=== PATIENT | female | born 2000 | race Caucasian/White ===

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

== ENCOUNTER 2019-05-15 08:43 | Emergency (ER) | payer OTHER ==
[~2019-05-15] VITALS: Ht 149.9 cm; Wt 41.4 kg
[2019-05-15 08:45] VITALS: BP 107/63
[2019-05-15] MEDS ORDERED: DICYCLOMINE HCL LIQUID 20 MG, ALUMINUM HYD/MAG/SIMETHICONE 30 ML, LIDOCAINE VISCOUS 2% ... PO ONE ×3 (08:55)
--- NOTE | 2019-05-15 09:00 | NUR ---
PT C/O STERNAL CHEST PAIN, EPIGASTIRC PAIN X 4 DAYS. PT DESCRIBES CHEST PAIN "HEARTBURN". PT DENIES N/V/D, COUGH, OR SOB AT THIS TIME. PATIENT STATES PAIN OF 5/10 AT THIS TIME; VSS; PATIENT POSITIONED FOR COMFORT; HOB ELEVATED; BEDRAILS UP X1; BED DOWN. ER MD MADE AWARE OF PT STATUS.
[2019-05-15] MEDS ORDERED: ALUMINUM HYD/MAG/SIMETHICONE 30 ML UDC ONE (09:07)
[2019-05-15] MEDS ORDERED: LIDOCAINE VISCOUS 2% 20 ML UDC ONE (09:07)
[2019-05-15] MEDS ORDERED: DICYCLOMINE HCL LIQUID 10 MG/5 ML UDC ONE (09:07)
--- NOTE | 2019-05-15 09:25 | NUR ---
PT REPORTS HAVING DELAYED MENSTRUL PEROID AND WANTED TO DO URINE TEST. [facility] SHOWS NEGATIVE RESULT.
[2019-05-15 09:39] VITALS: BP 103/59
--- NOTE | 2019-05-15 09:39 | NUR ---
Patient discharged with v/s stable. Written and verbal after care instructions given and explained. Patient alert, oriented and verbalized understanding of instructions. Ambulatory with steady gait. All questions addressed prior to discharge. ID band removed. Patient advised to follow up with PMD. Rx of Prilosec given. Patient educated on indication of medication including possible reaction and side effects. Opportunity to ask questions provided and answered.
== END 2019-05-15 09:39 | disposition home or self-care (01) ==
LOC: MED 08:43
DX: K21.9 Gastro-esophageal reflux disease without esophagitis (principal)
CPT/HCPCS: 81025; 99283

== ENCOUNTER 2019-06-24 10:03 | Emergency (ER) | payer OTHER ==
[~2019-06-24] VITALS: Ht 149.9 cm; Wt 45.4 kg
[2019-06-24 10:07] VITALS: BP 124/89
[2019-06-24] MEDS ORDERED: fentaNYL 0.05 MG/ML VIAL IVP ONE (10:15)
[2019-06-24 12:20] VITALS: BP 108/70
== END 2019-06-24 12:20 | disposition home or self-care (01) ==
LOC: MED 10:03
DX: S83.095A Other dislocation of left patella, initial encounter (principal); X58.XXXA Exposure to other specified factors, initial encounter; K21.9 Gastro-esophageal reflux disease without esophagitis; Y93.89 Activity, other specified; Y92.092 Bedroom in other non-institutional residence as the place of occurrence of the external cause; Y99.8 Other external cause status
CPT/HCPCS: 73560; 73562; 99284; J3010; Q0092

== ENCOUNTER 2023-08-07 01:10 | Emergency (ER) | payer OTHER ==
[~2023-08-07] VITALS: Ht 149.9 cm; Wt 47.6 kg
[2023-08-07 01:30] VITALS: BP 107/70; PULSE 88; RESP 18; TEMP 97.9; O2SAT 96
[2023-08-07 01:48] VITALS: O2SAT 98
[2023-08-07] MEDS ORDERED: AMOX500C25 PO (03:20)
[2023-08-07] MEDS ORDERED: ACET-10509 PO (03:20)
[2023-08-07] MEDS: ACETAMINOPHEN EXTRA STRENGTH 500 MG TAB PO ONE (03:34)
== END 2023-08-07 03:37 | disposition home or self-care (01) ==
LOC: MED 01:10
DX: O26.892 Other specified pregnancy related conditions, second trimester (principal); K08.89 Other specified disorders of teeth and supporting structures; K21.9 Gastro-esophageal reflux disease without esophagitis; Z3A.27 27 weeks gestation of pregnancy; Z79.1 Long term (current) use of non-steroidal anti-inflammatories (NSAID); Z79.2 Long term (current) use of antibiotics
CPT/HCPCS: 99283

== ENCOUNTER 2023-11-02 05:55 | Inpatient (IN) | payer OTHER ==
[~2023-11-02] VITALS: Ht 149.9 cm; Wt 50.8 kg
[~2023-11-02 05:55] MED LIST: ACET500T99 PO; AMOX500C25 PO
[2023-11-02] MEDS ORDERED: LACTATED RINGERS 500 ML IV SCH (07:45)
[2023-11-02] MEDS: LACTATED RINGERS 1,000 ML IV SCH (07:58)
[2023-11-02 08:02] LABS: BASOPHILS % (AUTO) 0.4 % (0.0-2.0); EOSINOPHILS # (AUTO) 0.1 K/uL (0-0.4); EOSINOPHILS % (AUTO) 1.4 % (0.0-4.0); HEMATOCRIT 34.6 % (36-48); HEMOGLOBIN 11.4 g/dL (12.0-16.0); LYMPHOCYTES # (AUTO) 1.8 K/uL (2.5-16.5); LYMPHOCYTES % (AUTO) 26.7 % (20.5-51.1); MEAN CORPUSCULAR HEMOGLOBIN 30 pg (27-31); MEAN CORPUSCULAR HGB CONC 33 g/dL (33-37); MEAN CORPUSCULAR VOLUME 90.3 fL (80-94); MONOCYTES # (AUTO) 0.6 K/uL (0.8-1.0); MONOCYTES % (AUTO) 9.4 % (1.7-9.3); NEUTROPHILS # (AUTO) 4.2 K/uL (1.8-7.7); NEUTROPHILS % (AUTO) 62.1 % (42.2-75.2); PLATELET COUNT (AUTO) 236 K/uL (140-450); RED BLOOD CELL COUNT(AUTO) 3.83 MIL/uL (4.20-5.40); RED CELL DISTRIBUTION WIDTH 15.1 % (11.6-13.7); WHITE BLOOD COUNT (AUTO) 6.8 K/uL (4.8-10.8)
[2023-11-02 08:15] LABS: ALBUMIN 2.5 g/dL (3.4-5.0); ANION GAP 13.3 (8-16); CALCIUM 8.3 mg/dL (8.5-10.1); CARBON DIOXIDE 23.8 mmol/L (21-32); CREATININE 0.6 mg/dL (0.6-1.3); POTASSIUM 4.1 mmol/L (3.5-5.1); TOTAL BILIRUBIN 0.2 mg/dL (0.0-1.0); TOTAL PROTEIN, SERUM 6.6 g/dL (6.4-8.2)
[2023-11-02 08:17] LABS: INR 0.86 (0.8-1.2); PROTHROMBIN TIME 9.1 secs (10.8-13.4)
[2023-11-02 08:19] LABS: APPEARANCE,URINE CLEAR (CLEAR); BILIRUBIN,URINE NEGATIVE (NEGATIVE); BLOOD, URINE NEGATIVE (NEGATIVE); COLOR,URINE YELLOW (YELLOW); LEUKOCYTE ESTERASE ,URINE NEGATIVE (NEGATIVE); NITRITE, URINE NEGATIVE (NEGATIVE); PROTEIN,URINE NEGATIVE (NEGATIVE); UGLUCOSE NEGATIVE (NEGATIVE); UROBILINOGEN,URINE 0.2 EU/dL (0.2 - 1)
[2023-11-02 08:32] LABS: AMPHETAMINE, URINE NEGATIVE ng/ml (NEG <=1000); BARBITURATE, URINE NEGATIVE ng/ml (NEG <=200); BENZODIAZEPINE, URINE NEGATIVE ng/mL (NEG <=200); CANNABINOID, URINE NEGATIVE ng/mL (NEG <=50); COCAINE, URINE NEGATIVE ng/mL (NEG <=300)
[2023-11-02 08:33] LABS: OPIATE, URINE NEGATIVE ng/mL (NEG <=2000); PHENCYCLIDINE SCREEN,URINE NEGATIVE ng/mL (NEG <=25)
--- NOTE | 2023-11-02 08:58 | NUR ---
PATIENT HAS BEEN SCREENED AND CATEGORIZED LOW NUTRITION RISK. PATIENT WILL BE SEEN WITHIN 7 DAYS OF ADMISSION. 11/09/[address]
[2023-11-02 09:02] VITALS: BP 120/75; PULSE 75; RESP 18; TEMP 98.2
[2023-11-02] MEDS: TERBUTALINE 1 MG/ML VIAL SUBQ SCH (09:11)
[2023-11-02] MEDS ORDERED: ROPIVACAINE 0.2%/NS PREMIX 200 ML EPI ONE (09:51)
[2023-11-02] MEDS ORDERED: AMPICILLIN 2,000 MG in NACL 0.9% MINI-BAG PLUS 100 ML IV SCH (12:50)
[2023-11-02] MEDS: AMPICILLIN 2,000 MG VIAL ONE (13:15)
[2023-11-02] MEDS ORDERED: OXYTOCIN/0.9 % SODIUM CHLORIDE 500 ML IV SCH (16:05)
[2023-11-02] MEDS: OXYTOCIN/0.9 % SODIUM CHLORIDE 500 ML IV ONE (16:12)
[2023-11-02] MEDS ORDERED: AMPICILLIN 1,000 MG VIAL ONE (16:54)
[2023-11-02] MEDS: AMPICILLIN 1,000 MG in NACL 0.9% MINI-BAG PLUS 50 ML IV SCH (17:28)
[2023-11-02] MEDS ORDERED: LIDOCAINE 1% 500 MG/50 ML VIAL ONE (18:42)
[2023-11-02] MEDS ORDERED: LIDOCAINE MPF 1% 10 MG/ML VIAL INJ ONE (18:45)
[2023-11-02] MEDS ORDERED: SODIUM PHOSPHATE 118 ML ENEM RC PRN (19:00)
[2023-11-02] MEDS ORDERED: oxyCODONE/APAP 5/325 MG 1 TAB TAB PO PRN (19:00)
[2023-11-02] MEDS ORDERED: TEMAZEPAM 15 MG CAP PO PRN (19:00)
[2023-11-02] MEDS ORDERED: OXYTOCIN 10 UNITS/ML VIAL IM PRN (19:00)
[2023-11-02] MEDS ORDERED: MEASLES, MUMPS, AND RUBELLA 1 VIAL SQVAC ONE (19:00)
[2023-11-02] MEDS ORDERED: METHYLERGONOVINE 0.2 MG/ML AMP IM PRN (19:00)
[2023-11-02] MEDS ORDERED: BENZOCAINE/MENTHOL 20%-0.5% 60 GM CAN TP PRN (19:00)
[2023-11-02] MEDS ORDERED: METHYLERGONOVINE 0.2 MG TAB PO PRN (19:00)
[2023-11-02] MEDS: DOCUSATE SOD/SENNA 50/8.6 MG 1 TAB PO SCH (21:16)
[2023-11-03] MEDS: IBUPROFEN 800 MG TAB PO PRN (04:12)
[2023-11-03 06:50] LABS: HEMATOCRIT 28.9 % (36-48); HEMOGLOBIN 9.5 g/dL (12.0-16.0)
[2023-11-03] MEDS ORDERED: DOCUSATE SOD/SENNA 50/8.6 MG 1 TAB PO SCH (21:00)
[2023-11-03] MEDS ORDERED: MEDS-TO-BEDS MC SCH (21:00)
== END 2023-11-04 14:45 | disposition home or self-care (01) | DRG 560 ==
LOC: MLD 05:55 → OBSVTOIN 07:45 → MFCC 20:30
PROVIDERS: ADMIT Obstetrics & Gynecology; ATTEND Obstetrics & Gynecology
PROC: 10E0XZZ Delivery of Products of Conception, External Approach (ICD-10-PCS; principal; 2023-11-04)
PROC: 3E0R3BZ Introduction of Anesthetic Agent into Spinal Canal, Percutaneous Approach (ICD-10-PCS; 2023-11-04)
PROC: 00HU33Z Insertion of Infusion Device into Spinal Canal, Percutaneous Approach (ICD-10-PCS; 2023-11-04)
DX: O99.013 Anemia complicating pregnancy, third trimester (principal); Z37.0 Single live birth; R71.0 Precipitous drop in hematocrit; Z3A.39 39 weeks gestation of pregnancy
CPT/HCPCS: 36415; 59409; 80053; 80305; 81003; 85018; 85025; 85610; 85730; 86592; 86762; 86886; 86900; 86901; 87340; 87653-90; J0290; J2001; J2590; J2795; J3105